=== PATIENT | female | born 1985 | race Caucasian/White ===

== ENCOUNTER 2024-03-07 13:37 | Emergency (ER) | payer OTHER, SELFPAY ==
--- NOTE | 2024-03-07 13:37 | ECG_ITS ---
[facility] Test Date: 2024-03-07 Pat Name: Breana Del Angel Department: Room: Gender: Female Community Associate: : 1985 Requested By: Nestor Hartley Order Number: [id number] Shannon MD: Yaw Lopez M.D. Measurements Intervals Virgie Rate: 117 P: 70 [place]: 125 QRS: 39 QRSD: 76 T: 54 QT: 296 QTc: 413 Interpretive Statements SINUS TACHYCARDIA LOW QRS VOLTAGE IN PRECORDIAL LEADS [QRS DEFLECTION < 1.0 mV IN CHEST LEADS] NONSPECIFIC ST & T-WAVE ABNORMALITY ABNORMAL RHYTHM ECG No previous ECG available for comparison Electronically Signed On 03-07-2024 17:37:04 CDT by Yaw Lopez M.D. [id number]
[2024-03-07 13:43] VITALS: BP 157/103; PULSE 91; RESP 20; TEMP 36.4; O2SAT 100; BMI 36.5
--- NOTE | 2024-03-07 14:05 | XRR_ITS ---
PROCEDURE INFORMATION: Exam: XR Chest Exam date and time: 03/07/2024 3:06 PM Age: 38 years old Clinical indication: Cough and dyspnea; Additional info: Dyspnea/cough TECHNIQUE: Imaging protocol: Radiologic exam of the chest. Views: 1 view. COMPARISON: No relevant prior studies available. FINDINGS: Lungs: Lungs are clear bilaterally. Pleural spaces: No pleural effusion. No pneumothorax. Heart/Mediastinum: The cardiac silhouette and mediastinal contours are unremarkable. Bones/joints: Unremarkable for age. XR/XR chest 1V portable [id number] IMPRESSION: No acute cardiopulmonary process.
--- NOTE | 2024-03-07 14:08 | ED_ITS ---
HPI - Dizziness 2 General: Chief Complaint: Dizziness Stated Complaint: chest pains Time Seen by Provider: 03/07/24 14:01 Source: patient Mode of arrival: ambulatory History of Present Illness: HPI Narrative: 38-year-old female presents to the emerg ency room complaining of left arm numbness tongue numbness began about half an hour ago [place] She was dizzy at times even felt like she might of passed out. She is still very nauseous but has not vomited. Denies any visual changes. Difficult time swallowing. No headache. She denies any abdominal pain denies any dysuria urgency or frequency. Symptoms worsen when she attempts to sit up. MD elicited complaint: dizziness and difficulty walking Onset (ago): minute(s) Associated symptoms: Denies abnormal vaginal bleeding, change in hearing, chest pain, chills, cough, diaphoresis, ear discharge, ear pressure, fevers/chills, headache(s), malaise, nausea, nasal congestion, palpitations, rash, short of breath, syncope, tinnitus, vomiting or weakness Review of Systems 2 Const: Denies: fever(s), chills, malaise or diaphoresis ENMT: Denies: ear discharge, change in hearing, tinnitus or nasal congestion Card: Denies: chest pain, palpitations or syncope Resp: Denies: dyspnea GI: Denies: abdominal pain, nausea or vomiting : Denies: dysuria, urinary frequency or urinary urgency Musc: Denies: neck pain or back pain Skin/Breast: Denies: rash Neuro: Reports: dizziness; Denies: headache(s) Psych: Reports: anxiety Physical Exam 2 Const: COMMON NORMALS: no acute distress GENERAL APPEARANCE: cooperative and comfortable ORIENTATION/CONSCIOUSNESS: Yes awake, Yes oriented to person, Yes oriented to place and Yes oriented to time HENMT: COMMON NORMALS: normocephalic, atraumatic and hearing grossly normal bilaterally HEAD & SCALP: normocephalic and atraumatic Resp: COMMON NORMALS: normal respiratory effort, No retractions, No use of accessory muscles and clear to auscultation bilaterally AUSCULTATION: clear to auscultation bilaterally Cardio: COMMON NORMALS: regular rate, regular rhythm and No murmurs present (Cardio) RATE: regular rate RHYTHM: regular rhythm GI: COMMON NORMALS: Soft to palpation and No hepatosplenomegaly present A USCULTATION: Yes normoactive bowel sounds PALPATION: Yes Soft to palpation, No Tenderness to palpation present (GI), No Guarding due to palpation present (GI) and Yes No hepatosplenomegaly present Extremity: COMMON NORMALS: normal to inspection, capillary refill normal, no clubbing, cyanosis or edema, no calf tenderness and no pedal edema Neuro: SENSORIUM/ORIENTATION: Yes oriented to person, Yes oriented to place and Yes oriented to time Skin: COMMON NORMALS: no rashes or lesions noted GENERAL SKIN EXAM: no rashes or lesions noted Course 2 Vital Signs: Vital signs: Vital Signs Temperature 97.5 F L 03/07/24 17:44 Pulse Rate 73 03/07/24 17:44 Respiratory Rate 20 H 03/07/24 17:44 Blood Pressure 143/79 03/07/24 17:44 Pulse Oximetry 100 03/07/24 17:44 Oxygen Delivery Me thod Room Air 03/07/24 16:34 MDM - Dizziness Medical Decision Making Labs and imaging reviewed no significant findings patient is better after fluids. She thinks the episode may have been due to anxiety. She was breathing a little fast when she arrived but ABG does not show hyperventilation. Remainder of exam at this point is unremarkable. We did discussion about somatizations symptoms. It certainly is possible not finding any other emergent things at this time. She ambulated without further difficulty or dizziness she has no reproducible dizziness with movement of her head. Will discharge home return if she has further problems. Offered her something for short-term for use for anxiety which she declined. Encouraged her to follow-up with her primary care doctor. Medical Records I reviewed the patient's medical records. Lab Data I reviewed the patient's lab results. 03/07/24 14:36 03/07/24 14:36 Radiology Impressions Chest X-Ray 03/07/24 14:05 IMPRESSION: No acute cardiopulmonary process. Laboratory Results WBC 11.13 10^3/uL (3.29-11.43) 03/07/24 14:36 RBC 4.17 10^6/uL (3.85-5.65) 03/07/24 14:36 Hgb 13.10 g/dL (11.27-16.99) 03/07/24 14:36 Hct 38.3 % (36-47) 03/07/24 14:36 MCV 91.8 fl (85-98) 03/07/24 14:36 MCH 31.4 pg (27-33) 03/07/24 14:36 MCHC 34.2 g/dL (30-55) 03/07/24 14:36 RDW 12.1 % (12.1-15.1) 03/07/24 14:36 Plt Count 360 10^3/cmm (157-399) 03/07/24 14:36 MPV 9.9 fL (7.4-10.4) 03/07/24 14:36 Neut % (Auto) 83.7 % 03/07/24 14:36 Lymph % (Auto) 8.3 % 03/07/24 14:36 [place] % (Auto) 6.6 % 03/07/24 14:36 Eos % (Auto) 0.4 % 03/07/24 14:36 Baso % (Auto) 0.6 % 03/07/24 14:36 Neut # (Auto) 9.31 10^3/uL (1.8-7.7) H 03/07/24 14:36 Lymph # (Auto) 0.9 10^3/uL (0.8-4.8) 03/07/24 14:36 [place] # (Auto) 0.7 10^3/uL (0.2-0.9) 03/07/24 14:36 Eos # (Auto) 0.1 10^3/uL (0.0-0.8) 03/07/24 14:36 Baso # (Auto) 0.1 10^3/uL (0.0-0.1) 03/07/24 14:36 Nucleated RBC % (auto) 0 % 03/07/24 14:36 Nucleated RBCs # 0.0 /100WBC 03/07/24 14:36 Specimen Type Arterial 03/07/24 14:35 Sample Site Radial, left 03/07/24 14:35 ABG pH 7.40 (7.35-7.45) 03/07/24 14:35 ABG pCO2 36.5 mmHg (35-45) 03/07/24 14:35 ABG pO2 82.3 mmHg (80.0-100.0) 03/07/24 14:35 ABG PO2/FiO2 Ratio 0 03/07/24 14:35 ABG HCO3 22.7 mmol/L (22-26) 03/07/24 14:35 ABG O2 Saturation 96.8 03/07/24 14:35 ABG Base Excess -1.7 mmol/L (-2.0-2.0) 03/07/24 14:35 [place] Test Pos 03/07/24 14:35 A-a O2 Gradient 2.8 mmHg (5-10) L 03/07/24 14:35 Hematocrit 40.8 % (37-47) 03/07/24 14:35 Hgb O2 Saturation 95.7 % (95-100) 03/07/24 14:35 Carboxyhemoglobin 0.7 %THgb (0.4-20.1) 03/07/24 14:35 Methemoglobin 0.4 % (0.4-1.5) 03/07/24 14:35 Total Hemoglobin 13.3 g/dL (12-16) 03/07/24 14:35 Sodium 143.0 mmol/L (131-143) 03/07/24 14:35 Potassium 4.0 mmol/L (3.5-5.0) 03/07/24 14:35 Glucose 105.0 mg/dL (70-115) 03/07/24 14:35 Ionized Calcium 1.2 mmol/L (1.1-1.4) 03/07/24 14:35 O2 Delivery Device Room air 03/07/24 14:35 FiO2 21.0 % 03/07/24 14:35 Felt Hat Pouncing Operator Hand ID [place] 03/07/24 14:35 Sodium 141 mmol/L (136-145) 03/07/24 14:36 Potassium 4.1 mmol/L (3.5-5.1) 03/07/24 14:36 Chloride 108 mmol/L (98-107) H 03/07/24 14:36 Carbon Dioxide 20 mmol/L (22-29) L 03/07/24 14:36 Anion Gap 17.1 (5-19) 03/07/24 14:36 BUN 9 mg/dL (6-20) 03/07/24 14:36 Creatinine 0.7 mg/dL (0.5-0.9) 03/07/24 14:36 GFR Calculation 94.2 mL/min (90-130) 03/07/24 14:36 Glucose 108 mg/dL (65-115) 03/07/24 14:36 POC Glucose 98 mg/dL (70-110) 03/07/24 14:16 Calculated Osmolality 291 mOsm/kg (285-295) 03/07/24 14:36 Calcium 8.8 mg/dL (8.5-10.5) 03/07/24 14:36 Total Bilirubin 0.2 mg/dL (0.15-1.2) 03/07/24 14:36 AST 18 U/L (0-32) 03/07/24 14:36 ALT 19 U/L (0-33) 03/07/24 14:36 Alkaline Phosphatase 126 U/L (35-105) H 03/07/24 14:36 Troponin T Baseline < 6 ng/L (0-10) 03/07/24 14:36 Troponin T 120 Minute 6.00 ng/L (0-10) 03/07/24 16:22 Delta Troponin T 0.47813 ABS# (0-10) 03/07/24 16:22 Total Protein 7.0 g/dL (6.6-8.7) 03/07/24 14:36 Albumin 4.5 g/dL (3.5-5.2) 03/07/24 14:36 Globulin 2.5 g/dL (1.3-4.6) 03/07/24 14:36 Urine Color Yellow (Yellow) 03/07/24 14:36 Urine Appearance Clear (CLEAR) 03/07/24 14:36 Urine pH 5 (5-7) 03/07/24 14:36 Ur Specific [place] 1.010 (1.005-1.030) 03/07/24 14:36 Urine Protein Neg (Negative) 03/07/24 14:36 Urine Glucose (UA) Norm (Normal) 03/07/24 14:36 Urine Ketones Negative (Negative) 03/07/24 14:36 Urine Blood Neg (Negative) 03/07/24 14:36 Urine Nitrate Negative (Negative) 03/07/24 14:36 Urine Bilirubin Neg (Negative) 03/07/24 14:36 Urine Urobilinogen Norm mg/dL (Negative) 03/07/24 14:36 Ur Leukocyte Esterase Negative (Negative) 03/07/24 14:36 All radiology interpretation(s) finalized by discharge Discharge Plan Discharge Patient Disposition: Home Clinical Impression: Dizziness Condition: Stable Discharge Orders: Discharge ED (Routine); Ordered 03/07/24 Ordered By: Nestor Campos Discharge Diet: Usual diet Discharge Activity: Resume usual activity Patient Instructions: Opioid Safety, Pain Management Activity Restrictions/Additional Instructions: Thank you for choosing [facility] for your healthcare needs today. It is very important that you follow up as instructed or that you return to the Emergency Department should you have concerns or if your condition changes or worsens in any way. You were seen today for atypical symptoms including dizziness and numbness in your left arm. Evaluation your labs EKG did not show any acute abnormalities. ABG was normal. Recommend you follow-up with your primary care doctor if you have any recurrent episodes. Coding Level of Care Code ED Cinetechnician for Rashawn Batista
[2024-03-07 14:23] VITALS: BP 143/79; PULSE 68; O2SAT 99
[2024-03-07 14:23] LABS: Glucose Point of Care 98 mg/dL (70-110)
[2024-03-07 14:42] LABS: Basophils # 0.1 10^3/uL (0.0-0.1); Basophils % 0.6 %; Eosinophils # 0.1 10^3/uL (0.0-0.8); Eosinophils % 0.4 %; Hematocrit 38.3 % (36-47); Lymphocytes # 0.9 10^3/uL (0.8-4.8); Lymphocytes % 8.3 %; Mean Corpuscular HGB Conc 34.2 g/dL (30-55); Mean Corpuscular Hemoglobin 31.4 pg (27-33); Mean Corpuscular Volume 91.8 fl (85-98); Mean Platelet Volume 9.9 fL (7.4-10.4); Monocytes # 0.7 10^3/uL (0.2-0.9); Monocytes % 6.6 %; Neutrophils # 9.31 10^3/uL (1.8-7.7); Neutrophils % 83.7 %; Nucleated Red Blood Cells % 0 %; Platelet Count 360 10^3/cmm (157-399); Red Blood Count 4.17 10^6/uL (3.85-5.65); Red Cell Distribution Width 12.1 % (12.1-15.1); White Blood Count 11.13 10^3/uL (3.29-11.43)
[2024-03-07 14:46] LABS: ABG PCO2 36.5 mmHg (35-45); Alveolar-Arterial Oxygen Gradi 2.8 mmHg (5-10); Arterial Blood Gas Hematocrit 40.8 % (37-47); Base Excess ABG -1.7 mmol/L (-2.0-2.0); Blood Gas Allen Test Pos; Blood Gas Sample Type Arterial; Carboxyhemoglobin 0.7 %THgb (0.4-20.1); HCO3 ABG 22.7 mmol/L (22-26); HGB O2 Sat 95.7 % (95-100); Ionized Calcium Level - ABG 1.2 mmol/L (1.1-1.4); Methemoglobin 0.4 % (0.4-1.5); Oxygen Saturation ABG 96.8; PO2 ABG 82.3 mmHg (80.0-100.0); Total Hemoglobin 13.3 g/dL (12-16)
[2024-03-07 14:48] LABS: Blood Gas Operator Identificat MONRO; Blood Gas Sample Site Radial, left; Oxygen Device ROOM AIR; PO2 FiO2 Ratio Arterial Blood 0
[2024-03-07 15:06] LABS: Troponin(5th) Baseline < 6 ng/L (0-10)
[2024-03-07] MEDS: sodium chloride 0.9% 1,000 ML 999 ML IV ×2 (15:08→16:13)
[2024-03-07 15:09] LABS: Alanine Aminotransferase 19 U/L (0-33); Albumin Level 4.5 g/dL (3.5-5.2); Alkaline Phosphatase 126 U/L (35-105); Anion Gap 17.1 (5-19); Aspartate Amino Transferase 18 U/L (0-32); Blood Urea Nitrogen 9 mg/dL (6-20); Calcium 8.8 mg/dL (8.5-10.5); Carbon Dioxide 20 mmol/L (22-29); Chloride 108 mmol/L (98-107); Creatinine Clr Calc Pharmacy 119.5405; Globulin 2.5 g/dL (1.3-4.6); Glomerular Filtration Rate 94.2 mL/min (90-130); Glucose 108 mg/dL (65-115); Osmolality Calculated 291 mOsm/kg (285-295); Potassium 4.1 mmol/L (3.5-5.1); Sodium 141 mmol/L (136-145); Total Bilirubin 0.2 mg/dL (0.15-1.2)
[2024-03-07 15:40] VITALS: PULSE 78; O2SAT 96
--- NOTE | 2024-03-07 16:05 | ECG_ITS ---
[facility] Test Date: 2024-03-07 Pat Name: Breana Del Angel Department: Room: Gender: Female Probation Manager: : 1985 Requested By: Nestor Hartley Order Number: [id number] Reading MD: Yaw Lopez M.D. Measurements Intervals Protivin Rate: 67 P: 46 MT: 149 QRS: 41 QRSD: 77 T: 53 QT: 390 QTc: 413 Interpretive Statements SINUS RHYTHM Compared to ECG 03/07/2024 13:37:21 Sinus tachycardia no longer present T-wave abnormality no longer present Electronically Signed On 03-07-2024 17:38:25 CDT by Yaw Lopez M.D. [email or web address]
[2024-03-07 16:34] VITALS: PULSE 73; O2SAT 100
[2024-03-07 16:35] LABS: Add Urine Microscopic? NO; Charge for UA Resulting for Rev
[2024-03-07 16:47] LABS: Bilirubin Urine Neg (Negative); Blood Urine Neg (Negative); Glucose Urine UA Norm (Normal); Ketones Urine Negative (Negative); Leukocyte Esterase Urine Negative (Negative); Nitrate Urine Negative (Negative); Protein Urine Neg (Negative); Urine Appearance Clear (CLEAR); Urine Color Yellow (Yellow); Urobilinogen Urine Norm (Negative); pH Urine 5 (5-7)
[2024-03-07 16:50] LABS: Troponin 5 2HR Delta 0.00001 ABS# (0-10)
[2024-03-07 17:44] VITALS: BP 143/79; PULSE 73; RESP 20; TEMP 36.4; O2SAT 100
== END 2024-03-07 17:44 | disposition home or self-care (01) ==
PROVIDERS: Emergency Provider Family Medicine
DX: R42 Dizziness and giddiness (principal)
CPT/HCPCS: 36415; 36416; 36600; 71045; 80051; 80053; 81003; 82330; 82805; 82962; 84484; 85025; 93005; 96360; 99285; J7030